=== PATIENT | female | born 2000 | race Caucasian/White ===

== ENCOUNTER 2020-09-16 14:47 | Outpatient (CLI) | payer BC, SELFPAY ==
--- NOTE | 2020-09-16 15:31 | PC.NURSE ---
Patient received COVID njection. 3 minutes after injection patient c/o throat scrtching and burning and skin burning. Discussed with mother and agreed to take by private car to the ER Patient and mother returned due to increased feeling of pain and to throat and thickness to tongue. Rocky richardson notifed and transported to ER lungs clear no SOB BP 140/99 86-20 pulse ox 100 % RA care transfered to EMS
== END 2020-09-16 14:48 | disposition home or self-care (01) ==
LOC: ANHCOVIDVC 14:47
PROVIDERS: PCP Family Medicine
DX: Z23 Encounter for immunization (principal)
CPT/HCPCS: 0001A; 91300

== ENCOUNTER → 2021-01-23 01:43 | Outpatient (CLI) | payer BC, SELFPAY ==
[2021-01-24 06:40] LABS: SARS-CoV-2 RNA PCR Negative
== END ==
PROVIDERS: PCP Family Medicine; Visit Provider Physician Assistant
DX: R05 Cough (principal); Z20.822 Contact with and (suspected) exposure to COVID-19
CPT/HCPCS: C9803; U0003; U0005

== ENCOUNTER → 2021-06-30 08:15 | Outpatient (CLI) | payer BC, SELFPAY ==
--- NOTE | ~2021-06-30 | US_ITS ---
EXAMINATION: US thyroid EXAM DATE: 06/30/2021 08:38 INDICATION: E01.0 - Iodine-deficiency related diffuse (endemic) goiter . TECHNIQUE: Multiple grayscale and Doppler images of the thyroid were obtained (by a technologist who performed the scan) and subsequently reviewed. Individual nodules and recommendations may be reporte d in accordance with TI-RADS system as designated by the 2017 ACR White Paper TI-RADS committee. The re is no prior study for comparison. FINDINGS: The right thyroid lobe measures 7.3 x 2.5 x 2.8 cm, the left thyroid lobe measuring 6.7 x 2.6 x 2.8 c m. There is diffusely heterogeneous thyroid echogenicity and mildly increased parenchymal vascularity . There are 2 contiguous to left thyroid lobe nodules, largest measuring 2.3 x 2.2 x 2.5 cm, solid (2 p oints), hyperechoic (1 point), wider than tall, smooth well defined margin, without echogenic foci, c ategory TR3 for this nodule. Size warrants considering ultrasound-guided FNA. The smaller nodule just cephalad to and abutting this measures up to 1 cm in size and has similar imaging characteristics. Largest right thyroid lobe nodule measures 1.1 cm in the deep aspect, category TR 4. Follow-up is ind icated in one year for this. IMPRESSION: Multinodular goiter; recommend ultrasound-guided biopsy of largest left thyroid lobe nodu le and one-year follow-up ultrasound. Reviewed, dictated and finalized at location [facility]. EKEEPING LEAD IMPRESSION: Multinodular goiter; recommend ultrasound-guided biopsy of largest left thyroid lobe nodule and one-year follow-up ultrasound.
== END ==
PROVIDERS: PCP Family Medicine; Visit Provider Physician Assistant
DX: E01.0 Iodine-deficiency related diffuse (endemic) goiter (principal)
CPT/HCPCS: 76536

== ENCOUNTER → 2022-02-04 12:44 | Outpatient (CLI) | payer BC, SELFPAY ==
--- NOTE | ~2022-02-04 | US_ITS ---
EXAMINATION: US thyroid DATE: 02/04/2022 13:09 INDICATION: Thyroid nodule TECHNIQUE: Multiple ultrasound images of the thyroid were obtained. COMPARISON: 06/30/2021 FINDINGS: The right thyroid lobe measures 6.6 x 2.7 x 2.2 cm. The left thyroid lobe measures 6.1 x 2.7 x 2.4 c m. There is diffuse coarsened echotexture and heterogeneous decreased echogenicity with pseudonodula r pattern and increased vascular flow throughout both thyroid lobes which could be seen with Hashimot o's thyroiditis. No significant interval change in a 1.1 cm solid hypoechoic nodule with smooth nate ns in the deep right thyroid lobe (TI-RADS 3, mildly suspicious , FNA if >=2.5 cm, annual followup is >=1.5 cm). No significant interval change in a larger 3.3 x 2.3 x 2.5 cm wider than tall solid isoec hoic nodule with lobular margins and without echogenic foci. (TI-RADS 4, moderately suspicious , FNA if >=1.5 cm, annual followup is >=1 cm) in the left thyroid lobe. Previously these nodules measure ju st to independent TI RADS 3 nodules however on review of cine images this appears to represent a sing le contiguous nodule with lobular margins which elevates the grading to TI-RADS 4. IMPRESSION: 1. Unchanged bilateral thyroid nodules with the larger 3.3 cm TI RADS 4 left thyroid nodule meeting c riteria for ultrasound-guided biopsy which would be recommended. Line 2. Diffuse heterogeneous decreased echogenicity and increased vascular flow throughout the surroundin g thyroid suggestive of Sheyla's/lymphocytic thyroiditis. Reviewed, dictated and finalized at location [facility]. IMPRESSION: 1. Unchanged bilateral thyroid nodules with the larger 3.3 cm TI RADS 4 left th yroid nodule meeting criteria for ultrasound-guided biopsy which would be recom mended. Line 2. Diffuse heterogeneous decreased echogenicity and increased vascular flow thr oughout the surrounding thyroid suggestive of Sheyla's/lymphocytic thyroidit is.
== END ==
PROVIDERS: PCP Family Medicine
DX: E04.1 Nontoxic single thyroid nodule (principal)
CPT/HCPCS: 76536

== ENCOUNTER 2022-04-17 15:09 | Emergency (ER) | payer BC, SELFPAY ==
--- NOTE | ~2022-04-17 | CT_ITS ---
EXAMINATION: CT brain wo con DATE: 04/17/2022 16:08 INDICATION: Right facial numbness, right arm numbness. Headache. TECHNIQUE: Computed tomography (CT) of the head was performed without intravenous contrast. The mA wa s adjusted according to patient size. Iterative reconstruction technique was employed. Exam dose: 60 5.33 mGy-cm total exam DLP. COMPARISON: 06/23/2012 CT brain FINDINGS: No intracranial mass lesion or hemorrhage or cerebrovascular accident. No midline shift or mass effect. Normal corbin-white matter differentiation. Normal ventricular size. No subdural or epidural hematoma. The orbital contents are unremarkable. Included paranasal sinuses and mastoid air cells are unremarkable. No skull fracture or bone destruct ion. IMPRESSION: Negative Reviewed, dictated and finalized at [facility]. Reviewed, dictated and finalized at location A. FITS SPECIALIST RECRUITER IMPRESSION: Negative
[2022-04-17 15:12] VITALS: BP 147/87; PULSE 91; RESP 16; TEMP 36.4; O2SAT 100
--- NOTE | 2022-04-17 15:25 | ED.HA ---
HPI - Headache General Chief Complaint: Headache Stated Complaint: migraine with facial numbness Time Seen by Provider: 04/17/22 15:18 History of Present Illness HPI Narrative: 22-year-old female history of migraines presented emergency room for evaluation of a resolved headache and right-sided facial numbness and bilateral hand paresthesias. Patient endorses a history of migraine and ocular headaches. States that about 1:00 this afternoon developed a headache which resolved 90 minutes later. Patient states she normally experiences numbness and tingling to her face and hands that lasts 30 minutes. Patient became concerned because the paresthesias lasted for about 45 minutes. Patient does endorse some anxiety currently. Denies unilateral focal deficits. Patient alert and orient x4. Related Data Allergies Allergy/AdvReac Type Severity Reaction Status Date / Time Pfizer COVID-19 vaccine Allergy Severe throat Uncoded 04/17/22 16:08 swelling/itching Review of Systems Review of Systems: CONSTITUTIONAL: Denies fever, chills, or sweats. EYES: Denies visual changes, redness, or discharge. ENT: Denies rhinorrhea, congestion, sore throat, or otalgia. CARDIOVASCULAR: Denies chest pain, palpitations, or edema. RESPIRATORY: Denies cough or dyspnea. GASTROINTESTINAL: Denies abdominal pain, nausea, vomiting, or diarrhea. GENITOURINARY: Denies dysuria or hematuria. SKIN: Denies rash or itching. MUSCULOSKELETAL: Denies back pain, joint pain, or myalgia. NEUROLOGIC: Reports paresthesias to right side face, bilateral hands PSYCHIATRIC: Reports anxiety. 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 Gender identity (if verbalized by the patient): Female Exam Narrative: GENERAL: Well-appearing, well-nourished, no physical limitations, and in no acute distress. HEAD: Normocephalic, atraumatic. EYES: Conjunctivae normal, PERRLA and EOMI. CHEST: Clear to auscultation. No respiratory distress. No wheezes rales or rhonchi. HEART: Regular rate and rhythm. No murmur heard. Normal peripheral pulses. EXTREMITIES: Normal range of motion. No edema. No clubbing or cyanosis SKIN: Warm, dry, no rash. No noted wounds NEURO: No focal deficits. Alert and oriented x3. MAEW. CN's II-XI intact bilaterally, normal gait PSYCH: Cooperative. Anxious. Course Vital Signs Vital signs: Vital Signs Temperature 36.4 C 04/17/22 15:12 Pulse Rate 91 04/17/22 15:12 Respiratory Rate 16 04/17/22 15:12 Blood Pressure 147/87 H 04/17/22 15:12 Pulse Oximetry 100 04/17/22 15:12 Oxygen Delivery Room Air 04/17/22 15:12 Temperature 36.4 C 04/17/22 15:12 Pulse Rate 91 04/17/22 15:12 Respiratory Rate 16 04/17/22 15:12 Blood Pressure 147/87 H 04/17/22 15:12 Pulse Oximetry 100 04/17/22 15:12 Oxygen Delivery Room Air 04/17/22 15:12 MDM - Headache Lab Data Labs: UCG Bedside Result Negative Reference Range: Negative Imaging Data Radiologist's impression: Impressions Head CT 04/17/22 16:10 IMPRESSION: Negative Discharge Plan Discharge Clinical Impression: Headache, Anxiety Patient Disposition: Home, Self-Care Condition: Stable Instructions: Antibiotic Form, Acute Headache (ED), Anxiety (ED) Prescriptions: No Action sumatriptan succi
[2022-04-17] MEDS: LORazepam (*CRX) 0.5 MG TABLET PO (16:06)
== END 2022-04-17 18:03 | disposition home or self-care (01) ==
PROVIDERS: Emergency Provider Nurse Practitioner Family; PCP Family Medicine
DX: R51.9 Headache, unspecified (principal); F41.9 Anxiety disorder, unspecified
CPT/HCPCS: 70450; 81025; 99284; A9270